=== PATIENT | female | born 1940 | race Hispanic/Latino ===

== ENCOUNTER 2017-05-21 22:24 | Emergency (ER) | payer MEDICAID, OTHER ==
[2017-05-21 22:47] LABS: BASOPHILS % (AUTO) 0.8 % (0.0-5.0); EOSINOPHILS % (AUTO) 2.8 % (0.0-8.0); HEMATOCRIT 39.3 % (36-48); LYMPHOCYTES % (AUTO) 16.6 % (21.0-51.0); MEAN CORPUSCULAR HEMOGLOBIN 30.1 pg (27.0-33.0); MEAN CORPUSCULAR VOLUME 88.5 fL (79-99); NEUTROPHILS % (AUTO) 70.8 % (40.0-77.0); PLATELET COUNT (AUTO) 162 K/uL (130-400); RED BLOOD CELL COUNT(AUTO) 4.44 MIL/uL (4.00-5.50); RED CELL DISTRIBUTION WIDTH 14.3 % (11.0-15.5); WHITE BLOOD COUNT (AUTO) 7.6 K/uL (4.8-10.8)
[2017-05-21 22:55] LABS: CREATININE 0.7 mg/dL (0.5-1.5); POTASSIUM 3.8 mmol/L (3.5-5.1)
[2017-05-21 22:58] LABS: INR 0.96 (0.85-1.15); PARTIAL THROMBOPLASTIN TIME 24.5 SEC (26.3-35.5); PROTHROMBIN TIME 10.1 SEC (9.6-11.6)
[2017-05-21 23:09] LABS: ALBUMIN 3.3 g/dL (3.5-5.0); BILIRUBIN,TOTAL 0.3 mg/dL (0.2-1.0); CREATINE KINASE MB 0.9 ng/mL (0.5-3.6); TOTAL PROTEIN, SERUM 6.9 g/dL (6.0-8.3)
== END 2017-05-22 01:01 | disposition home or self-care (01) ==
LOC: EDH 22:24
DX: I16.9 Hypertensive crisis, unspecified (principal); F03.90 Unspecified dementia, unspecified severity, without behavioral disturbance, psychotic disturbance, mood disturbance, and anxiety; J34.89 Other specified disorders of nose and nasal sinuses; R05 Cough; M79.89 Other specified soft tissue disorders; Z90.710 Acquired absence of both cervix and uterus
CPT/HCPCS: 36415; 70450; 71045; 80053; 82550; 82553; 83880; 84484; 85025; 85610; 85730; 93005; 99291

== ENCOUNTER 2018-06-21 09:22 | Emergency (ER) | payer MEDICAID, OTHER ==
[2018-06-21 10:00] LABS: APPEARANCE,URINE Clear (CLEAR); BILIRUBIN,URINE Negative (NEGATIVE); COLOR,URINE Yellow (YELLOW); GLUCOSE, URINE (UA) Negative (NEGATIVE); KETONES,URINE Negative (NEGATIVE); LEUKOCYTE ESTERASE ,URINE Moderate (NEGATIVE); NITRATE,URINE Negative (NEGATIVE); OCCULT BLOOD,URINE Negative (NEGATIVE); PH,URINE 7.5 (5.0-8.0); PROTEIN,URINE Negative (NEGATIVE); UROBILINOGEN,URINE 0.2 mg/dL (0.2-1.0)
[2018-06-21 10:11] LABS: BASOPHILS % (AUTO) 0.8 % (0.0-5.0); HEMATOCRIT 43.6 % (36-48); LYMPHOCYTES % (AUTO) 17.2 % (21.0-51.0); MEAN CORPUSCULAR HEMOGLOBIN 29.4 pg (27.0-33.0); MEAN CORPUSCULAR HGB CONC 32.8 g/dL (32.0-36.0); MEAN CORPUSCULAR VOLUME 89.6 fL (79-99); MONOCYTES % (AUTO) 8.2 % (3.0-13.0); NEUTROPHILS % (AUTO) 70.8 % (40.0-77.0); NUCLEATED RED BLOOD CELLS 0.1 % (0.0-0.19); PLATELET COUNT (AUTO) 137 K/uL (130-400); RED BLOOD CELL COUNT(AUTO) 4.87 MIL/uL (4.00-5.50); RED CELL DISTRIBUTION WIDTH 14.1 % (11.0-15.5); WHITE BLOOD COUNT (AUTO) 5.4 K/uL (4.8-10.8)
[2018-06-21 10:24] LABS: BACTERIA,URINE Moderate /HPF (None Seen); RBC,URINE 0-1 /HPF (0-1)
[2018-06-21 10:24] LABS: CREATININE 0.6 mg/dL (0.5-1.5); POTASSIUM 3.7 mmol/L (3.5-5.1)
[2018-06-21] MEDS ORDERED: CLONIDINE HCL 0.1 MG TABLET ONE (10:35)
== END 2018-06-21 14:07 | disposition home or self-care (01) ==
LOC: EDH 09:22
DX: I10 Essential (primary) hypertension (principal); F03.90 Unspecified dementia, unspecified severity, without behavioral disturbance, psychotic disturbance, mood disturbance, and anxiety; Z90.710 Acquired absence of both cervix and uterus; Z87.891 Personal history of nicotine dependence
CPT/HCPCS: 36415; 80048; 81001; 85025

== ENCOUNTER 2018-08-31 13:39 | Inpatient (IN) | payer OTHER ==
[~2018-08-31] VITALS: Ht 157.5 cm; Wt 67.2 kg
[2018-08-31] VITALS (7 sets, daily range): BP systolic 140–176; BP diastolic 60–113
[2018-08-31 14:02] LABS: BASOPHILS % (AUTO) 0.8 % (0.0-5.0); EOSINOPHILS % (AUTO) 2.4 % (0.0-8.0); LYMPHOCYTES % (AUTO) 18.2 % (21.0-51.0); MEAN CORPUSCULAR HEMOGLOBIN 29.2 pg (27.0-33.0); MEAN CORPUSCULAR HGB CONC 33.1 g/dL (32.0-36.0); MEAN CORPUSCULAR VOLUME 88.3 fL (79-99); MONOCYTES % (AUTO) 8.5 % (3.0-13.0); NEUTROPHILS % (AUTO) 70.1 % (40.0-77.0); PLATELET COUNT (AUTO) 143 K/uL (130-400); RED BLOOD CELL COUNT(AUTO) 4.64 MIL/uL (4.00-5.50); RED CELL DISTRIBUTION WIDTH 13.9 % (11.0-15.5); WHITE BLOOD COUNT (AUTO) 7.9 K/uL (4.8-10.8)
[2018-08-31 14:14] LABS: CREATININE 0.7 mg/dL (0.5-1.5); POTASSIUM 3.6 mmol/L (3.5-5.1)
[2018-08-31 14:18] LABS: ALBUMIN 3.3 g/dL (3.5-5.0); BILIRUBIN,TOTAL 0.3 mg/dL (0.2-1.0); TOTAL PROTEIN, SERUM 6.6 g/dL (6.0-8.3)
[2018-08-31 14:23] LABS: CREATINE KINASE, TOTAL 38 U/L (21-232); MYOGLOBIN 29 ng/mL (10-92); PARTIAL THROMBOPLASTIN TIME 27.1 SEC (26.3-35.5); PROTHROMBIN TIME 10.5 SEC (9.6-11.6); TROPONIN I < 0.04 ng/mL (0.00-0.06)
[2018-08-31] MEDS ORDERED: IOHEXOL-350 75 ML VIAL IV ONE (14:35)
[2018-08-31] MEDS ORDERED: ONDANSETRON HCL 4 MG/2 ML VIAL IV PRN (15:30)
[2018-08-31] MEDS ORDERED: ZOLPIDEM TARTRATE 5 MG TAB PO PRN (15:30)
[2018-08-31] MEDS ORDERED: ACETAMINOPHEN 325 MG TAB PO PRN ×2 (15:30)
[2018-08-31] MEDS ORDERED: ASPIRIN 81MG TAB.CHEW ONE (15:33)
[2018-08-31] MEDS ORDERED: HYDRALAZINE HCL 20 MG/ML VIAL ONE (16:23)
[2018-08-31] MEDS: SODIUM CHLORIDE 0.9% 1000ML 1,000 ML IV SCH (18:10)
--- NOTE | 2018-08-31 19:15 | NUR ---
[facility] ASSET PROTECTION MANAGER MADE AWARE OF MRI RESULTS. SEE ORDERS
--- NOTE | 2018-08-31 19:30 | NUR ---
ASSESSMENT PT RESTING IN BED QUIETLY, FAMILY AT BEDSIDE. PT CURRENTLY DENIES ANY PAIN. ASSESSMENT COMPLETED, SEE FLOW SHEET.
[2018-08-31] MEDS ORDERED: ENOXAPARIN SODIUM 30 MG/0.3 ML SQ SCH (21:00)
[2018-09-01] VITALS (7 sets, daily range): BP systolic 141–180; BP diastolic 80–108
[2018-09-01] MEDS: SODIUM CHLORIDE 0.9% 1000ML 1,000 ML IV SCH ×3 (00:11→15:25)
[2018-09-01 04:04] LABS: EOSINOPHILS % (AUTO) 2.7 % (0.0-8.0); LYMPHOCYTES % (AUTO) 15.6 % (21.0-51.0); MEAN CORPUSCULAR HEMOGLOBIN 30.5 pg (27.0-33.0); MEAN CORPUSCULAR HGB CONC 34.3 g/dL (32.0-36.0); MEAN CORPUSCULAR VOLUME 88.9 fL (79-99); MONOCYTES % (AUTO) 6.8 % (3.0-13.0); NEUTROPHILS % (AUTO) 73.9 % (40.0-77.0); PLATELET COUNT (AUTO) 139 K/uL (130-400); RED BLOOD CELL COUNT(AUTO) 4.61 MIL/uL (4.00-5.50); RED CELL DISTRIBUTION WIDTH 13.9 % (11.0-15.5); WHITE BLOOD COUNT (AUTO) 8.6 K/uL (4.8-10.8)
[2018-09-01 04:24] LABS: CREATININE 0.7 mg/dL (0.5-1.5); POTASSIUM 3.4 mmol/L (3.5-5.1)
[2018-09-01] MEDS ORDERED: LOSA50TA64 PO (08:02)
--- NOTE | 2018-09-01 08:11 | NUR ---
PT IS MORE CONVERSANT TODAY. SPEAKS MORE THAN ONE WORD AND IS ABLE TO EXPRESS HERSELF. SHE ANSWERS AND CURRENT MONTH INCORRECT. ORIENTED TO NAME ONLY. CALM. MOVES ALL EXTREMITIES- SOME MILD WEAKNESS TO LOWER EXTREMITIES BILATERALLY. FAMILY STATES SHE HAS NOT BEEN ABLE TO WALK DUE TO WEAKNESS AT HOME. RT KNEE HAS SOME MILD SWELLING BUT NO DEFORMITIES. WILL INFORM MD ON ROUNDS.
[2018-09-01] MEDS ORDERED: DONE5TAB33 PO (08:21)
--- NOTE | 2018-09-01 08:33 | NUR ---
PT BEING SEEN BY JAYNE LA. EXAMINING PT AND INTERVIEWING FAMILY. PT TOOK HER OWN [place] 50MG PO.
[2018-09-01] MEDS ORDERED: ASPIRIN 325 MG TABLET PO SCH ×2 (09:00)
[2018-09-01] MEDS: LOSARTAN 50 MG TABLET PO SCH (09:00)
[2018-09-01] MEDS: CLOPIDOGREL BISULFATE 75 MG TAB PO SCH (09:47)
[2018-09-01] MEDS: ASPIRIN 81MG TAB.CHEW PO SCH ×2 (09:47→15:24)
[2018-09-01] MEDS: ENOXAPARIN SODIUM 30 MG/0.3 ML SQ SCH (09:48)
--- NOTE | 2018-09-01 11:00 | NUR ---
INITIAL: Met with pt and family this morning to discuss dcp. Prior to admission pt was living w son Da Nair. Pt was independent w ambulation and ADLs. Per Dtr Dinora, pt owns a cane. Dinora also states that her brother goes to work during the day. Informed Dinora that pt would poss need care 18/09. She mentions that family will be making arrangements for someone to be w pt at all times. Low income packet provided. Per Dinora they were already looking into a program to assist w provider services. CM to continue to follow and wait of Md recommendations. Addendum: 09/01/18 at 1727 by JOSE E ESCOBAR CM Amended: Links added.
--- NOTE | 2018-09-01 12:39 | NUR ---
NO ACUTE CHANGES NOTED. STABLE. NO NEURO CHANGES NOTED
--- NOTE | 2018-09-01 18:28 | NUR ---
PT IS AGITATED AND CONFUSED . TRYING TO GET OUT OF BED AND DIFFICULT TO DIRECT. SHE IS SPEAKING SENTENCES-" I WANT TO GO OVER THERE" "THERE OVER THERE" FAMILY AT BEDSIDE. MOVES ALL EXTREMITIES. SPEECH IMPROVED. Marlene GARNETT BILLING CUSTOMER SERVICE REPRESENTATIVE CALLED NOTIFIED OF EPISODE. ORDERS RECEIVED FOR ATIVAN 0.5MG IV X 1
[2018-09-01] MEDS ORDERED: LORAZEPAM 2 MG/ML 1 ML VIAL IVP SCH (18:30)
[2018-09-01] MEDS ORDERED: LORAZEPAM 2 MG/ML 1 ML VIAL ONE (18:34)
--- NOTE | 2018-09-01 18:52 | NUR ---
PT NOW CALM AND RESTFUL. NO ACUTE DISTRESS NOTED.
--- NOTE | 2018-09-01 19:17 | NUR ---
TRANSFER TO ROOM 231. HAND OFF REPORT GIVEN TO DILCIA RN- FAMILY AWARE
[2018-09-01] MEDS: DONEPEZIL HCL 5 MG TAB PO SCH (21:51)
[2018-09-01] MEDS: ATORVASTATIN CALCIUM 20 MG TABLET PO SCH (21:51)
[2018-09-02] VITALS (8 sets, daily range): BP systolic 149–184; BP diastolic 78–108
[2018-09-02 03:39] LABS: EOSINOPHILS % (AUTO) 2.8 % (0.0-8.0); HEMATOCRIT 42.5 % (36-48); LYMPHOCYTES % (AUTO) 14.5 % (21.0-51.0); MEAN CORPUSCULAR HEMOGLOBIN 29.1 pg (27.0-33.0); MEAN CORPUSCULAR HGB CONC 32.8 g/dL (32.0-36.0); MEAN CORPUSCULAR VOLUME 88.8 fL (79-99); NEUTROPHILS % (AUTO) 72.7 % (40.0-77.0); PLATELET COUNT (AUTO) 157 K/uL (130-400); RED BLOOD CELL COUNT(AUTO) 4.78 MIL/uL (4.00-5.50); WHITE BLOOD COUNT (AUTO) 7.9 K/uL (4.8-10.8)
[2018-09-02 03:49] LABS: CREATININE 0.7 mg/dL (0.5-1.5); POTASSIUM 3.3 mmol/L (3.5-5.1)
[2018-09-02] MEDS: SODIUM CHLORIDE 0.9% 1000ML 1,000 ML IV SCH (05:12)
[2018-09-02] MEDS: ASPIRIN 81MG TAB.CHEW PO SCH (08:47)
[2018-09-02] MEDS: ENOXAPARIN SODIUM 30 MG/0.3 ML SQ SCH (08:47)
[2018-09-02] MEDS: LOSARTAN 50 MG TABLET PO SCH (08:47)
[2018-09-02] MEDS: CLOPIDOGREL BISULFATE 75 MG TAB PO SCH (08:47)
--- NOTE | 2018-09-02 09:30 | NUR ---
DYSPHAGIA EVAL COMPLETE. -S/S OF ASPIRATION. RECOMMEND REGULAR, THIN LIQUID DIET; PILLS WHOLE WITH LIQUIDS. PATIENT INFORMATION: Pt IS AN 78 Y.O. FEMALE REFERRED FOR A BEDSIDE DYSPHAGIA EVALUATION SECONDARY TO CVA VS TIA. DAUGHTER PRESENT AT BEDSIDE AT THE TIME OF THE EVALUATION. Pt COOPERATIVE PARTICIPATING IN P.O. Pt WITH DECREASED HAND EYE COORDINATION REQUIRING ASSISTANCE FOR P.O. Pt WITH DENTURES IN PLACE AT THE TIME OF THE EVALUATION. Pt CURRENTLY ADMITTED SECONDARY TO CVA VS TIA. Pt HAS A PAST MEDICAL HISTORY OF DEMENTIA, HYPERTENSIVE DISORDER. DAUGHTER STATES THAT Pt HAD SLURRED SPEECH AND DECREASED COORDINATION WHICH PROMPTED THEM TO BRING HER IN TO THE HOSPITAL. EVALUATION: SWALLOW FUNCTION AND EFFICIENCY WITHIN FUNCTIONAL LIMITS. ORAL MOTOR STRENGTH, COORDINATION, AND ROM WITHIN FUNCTIONAL LIMITS. LARYNGEAL ELEVATION/EXCURSION STRONG WITH TIMELY PHARYNGEAL RESPONSE. NO OVERT SIGNS OR SYMPTOMS OF ASPIRATION PRESENT AT BEDSIDE. VOCAL QUALITY CLEAR WITH NO THROAT CLEAR OR COUGH RESPONSE PRESENT. RECOMMENDATIONS: 1. REGULAR TEXTURE, THIN LIQUID DIET; PILLS WHOLE WITH LIQUIDS. 2. COMPENSATORY STRATEGIES (PROPHYLAXIS): *SEATED AT 90 DEGREE ANGLE *NO STRAW *SLOW RATE *REMAIN UPRIGHT 30 MINUTES AFTER MEAL TIMES G-CODES SWALLOWING: [id number] Addendum: 09/02/18 at 1240 by AMRITA PFEIFFER [facility] Amended: Links added.
--- NOTE | 2018-09-02 09:45 | NUR ---
COGNITIVE-LINGUISTIC EVALUATION. Pt PRESENTS WITH MODERATE COGNITIVE DEFICITS, MILD MOTOR SPEECH; AT BASELINE PER DAUGHTER. PATIENT INFORMATION: Pt IS AN 78 Y.O. FEMALE REFERRED FOR A COGNITIVE-LINGUISTIC EVALUATION SECONDARY TO CVA VS TIA. DAUGHTER PRESENT AT BEDSIDE AT THE TIME OF THE EVALUATION. Pt COOPERATIVE PARTICIPATING IN P.O. DAUGHTER REPORTS Pt IS BACK TO BASELINE AT THIS TIME. Pt CURRENTLY ADMITTED SECONDARY TO CVA VS TIA. Pt HAS A PAST MEDICAL HISTORY OF DEMENTIA, HYPERTENSIVE DISORDER. DAUGHTER STATES THAT Pt HAD SLURRED SPEECH AND DECREASED COORDINATION WHICH PROMPTED THEM TO BRING HER IN TO THE HOSPITAL. Pt'S DEFICITS HAVE IMPROVED. EVALUATION: Pt ABLE TO FOLLOW 1-STEP COMMANDS WITH MAX CUES. Pt AAOX1 INDEPENDENTLY. Pt WITH MILD DYSARTHRIA AND LOW VOCAL INTENSITY. Pt IS 60% INTELLIGIBLE TO UNFAMILIAR LISTENER. PT WITH DECREASED MEMORY SKILLS AND ATTENTION DURING THE EVALUATION. Pt PRESENTS WITH MILD MOTOR SPEECH DEFICITS AND MODERATE COGNITIVE DEFICITS. SKILLED SPEECH THERAPY IS NOT RECOMMENDED AT THIS TIME Pt IS CURRENTLY AT BASELINE. G-CODES MEMORY: [id number] Addendum: 09/02/18 at [address] Amended: Links added.
[2018-09-02] MEDS: DONEPEZIL HCL 5 MG TAB PO SCH (21:00)
[2018-09-02] MEDS: ATORVASTATIN CALCIUM 20 MG TABLET PO SCH (21:00)
[2018-09-02] MEDS: HYDRALAZINE HCL 20 MG/ML VIAL IV PRN (21:00)
[2018-09-03 03:00] VITALS: BP 153/78
[2018-09-03 03:48] LABS: BASOPHILS % (AUTO) 0.7 % (0.0-5.0); EOSINOPHILS % (AUTO) 4.3 % (0.0-8.0); HEMATOCRIT 42.1 % (36-48); LYMPHOCYTES % (AUTO) 22.2 % (21.0-51.0); MEAN CORPUSCULAR HEMOGLOBIN 30.3 pg (27.0-33.0); MEAN CORPUSCULAR HGB CONC 34.2 g/dL (32.0-36.0); MEAN CORPUSCULAR VOLUME 88.6 fL (79-99); MONOCYTES % (AUTO) 9.1 % (3.0-13.0); NEUTROPHILS % (AUTO) 63.7 % (40.0-77.0); PLATELET COUNT (AUTO) 142 K/uL (130-400); RED BLOOD CELL COUNT(AUTO) 4.75 MIL/uL (4.00-5.50); RED CELL DISTRIBUTION WIDTH 14.1 % (11.0-15.5); WHITE BLOOD COUNT (AUTO) 6.5 K/uL (4.8-10.8)
[2018-09-03 04:12] LABS: ALBUMIN 3.1 g/dL (3.5-5.0); CREATININE 0.7 mg/dL (0.5-1.5); MAGNESIUM 2.4 mg/dL (1.80-2.40)
--- NOTE | 2018-09-03 06:10 | NUR ---
0445 Informed per PCP Carlitos pt fell in room while daughter sleeping. Patient in bed when nurse walked in. Examined. Neuro v/s unchanged. Daughter Dinora Long at bedside states patient was not hurt. 0450 Call to Hospitalist filtration plant operator (Janet Marcum), informed of fall, pt status. X-rays ordered. Spoke to Radiation Oncologist YON Lee. Informed of fall. 512 Patient went down to radiology for x rays as ordered per .
[2018-09-03 07:31] VITALS: BP 164/76
[2018-09-03] MEDS ORDERED: METOPROLOL TARTRATE 25 MG TAB PO SCH (09:00)
[2018-09-03] MEDS: LOSARTAN 50 MG TABLET PO SCH (09:02)
[2018-09-03] MEDS: ASPIRIN 81MG TAB.CHEW PO SCH (09:02)
[2018-09-03] MEDS: CLOPIDOGREL BISULFATE 75 MG TAB PO SCH (09:02)
[2018-09-03] MEDS: ENOXAPARIN SODIUM 30 MG/0.3 ML SQ SCH (09:04)
[2018-09-03 09:57] VITALS: BP 149/82
--- NOTE | 2018-09-03 11:21 | NUR ---
FOLLOW-UP. Pt TOLERATING CURRENT DIET OF REGULAR, THIN LIQUIDS WITH NO OVERT S/S OF ASPIRATION. RECOMMEND CONTINUED P.O. FOR ALL MEALS AND SNACKS. Addendum: 09/03/18 at 1124 by AMRITA PFEIFFER, [facility] Amended: Links added.
[2018-09-03 11:24] VITALS: BP 145/78
[2018-09-03 15:42] VITALS: BP 162/84
[2018-09-03] MEDS: HYDRALAZINE HCL 20 MG/ML VIAL IV PRN (16:18)
[2018-09-03] MEDS ORDERED: POTASSIUM CHLORIDE 20 MEQ ERTAB PO ONE (19:26)
[2018-09-03] MEDS ORDERED: CLOP75TA14 PO (19:37)
[2018-09-03] MEDS ORDERED: METO25 PO (19:37)
[2018-09-03] MEDS ORDERED: ATOR20TA65 PO (19:37)
[2018-09-03] MEDS ORDERED: POTASSIUM CHLORIDE 20 MEQ ERTAB PO SCH ×2 (20:30)
--- NOTE | 2018-09-03 20:53 | NUR ---
DC DC TEACHING AND INSTRUCTION GIVEN TO PT AND FAMILY; VOICED UNDERSTANDING. IV REMOVED WITH TIP INTACT. TELEPACK REMOVED. VS WNL: BP-148/83,HR-104,,RR-20,O2 SATS-98%,T-98.2. PT DENIES PAIN OR DISTRESS. PT ESCORTED TO PRIVATE CAR VIA WHEELCHAIR IN STABLE CONDITION.
== END 2018-09-03 20:40 | disposition home or self-care (01) | DRG 66 ==
LOC: EDH 13:39 → EDHIP 13:40 → OBSVTOIN 13:40 → 2BH 16:29 → 2AH 09-01 19:04
PROVIDERS: ADMIT Hospitalist; ATTEND Hospitalist
DX: I63.9 Cerebral infarction, unspecified (principal); I10 Essential (primary) hypertension; F03.90 Unspecified dementia, unspecified severity, without behavioral disturbance, psychotic disturbance, mood disturbance, and anxiety; R29.705 NIHSS score 5; M25.561 Pain in right knee
CPT/HCPCS: 36415; 70450; 70496; 70498; 70551; 72070; 72100; 72220; 73560; 80048; 80053; 80061; 82040; 82550; 82948; 83036; 83735; 83874; 83880; 84443; 84484; 85025; 85610; 85730; 92522; 92610; 93005; 93306; 93880; 97039; A6250; G0378; J0360; J1650; J2060; J7030; Q9967

== ENCOUNTER 2019-01-03 04:00 | Emergency (ER) | payer MEDICAID, OTHER ==
[~2019-01-03 04:00] MED LIST: ATOR20TA65 PO; CLOP75TA14 PO; DONE5TAB33 PO; LOSA50TA64 PO; METO25 PO
[2019-01-03] MEDS ORDERED: ONDANSETRON HCL 4 MG/2 ML VIAL ONE (04:25)
[2019-01-03 04:29] LABS: LYMPHOCYTES % (AUTO) 21.2 % (21.0-51.0); MEAN CORPUSCULAR HEMOGLOBIN 31.5 pg (27.0-33.0); MEAN CORPUSCULAR HGB CONC 34.5 g/dL (32.0-36.0); MEAN CORPUSCULAR VOLUME 91.3 fL (79-99); MONOCYTES % (AUTO) 10.6 % (3.0-13.0); NEUTROPHILS % (AUTO) 64.2 % (40.0-77.0); NUCLEATED RED BLOOD CELLS 0.1 % (0.0-0.19); PLATELET COUNT (AUTO) 124 K/uL (130-400); RED BLOOD CELL COUNT(AUTO) 4.16 MIL/uL (4.00-5.50); RED CELL DISTRIBUTION WIDTH 14.5 % (11.0-15.5); WHITE BLOOD COUNT (AUTO) 5.8 K/uL (4.8-10.8)
[2019-01-03 04:34] LABS: CREATININE 1.2 mg/dL (0.5-1.5); POTASSIUM 3.1 mmol/L (3.5-5.1)
[2019-01-03 04:39] LABS: ALBUMIN 3.4 g/dL (3.5-5.0); BILIRUBIN,DIRECT 0.1 mg/dL (0.0-0.3); BILIRUBIN,TOTAL 0.7 mg/dL (0.2-1.0); TOTAL PROTEIN, SERUM 6.5 g/dL (6.0-8.3)
[2019-01-03 04:50] LABS: APPEARANCE,URINE Cloudy (CLEAR); BILIRUBIN,URINE Small (NEGATIVE); COLOR,URINE Dark Yellow (YELLOW); GLUCOSE, URINE (UA) Negative (NEGATIVE); KETONES,URINE Trace mg/dL (NEGATIVE); LEUKOCYTE ESTERASE ,URINE Trace (NEGATIVE); NITRATE,URINE Negative (NEGATIVE); OCCULT BLOOD,URINE Negative (NEGATIVE); PROTEIN,URINE POS 1+ mg/dL (NEGATIVE)
[2019-01-03 05:00] LABS: BACTERIA,URINE Rare /HPF (None Seen); MUCUS,URINE Few LPF (None Seen); RBC,URINE 0-1 /HPF (0-1); SQUAMOUS EPITHELIAL CELL,UR 0-2 /HPF (0-2)
[2019-01-03] MEDS ORDERED: POTASSIUM BICARB/CIT AC 25 MEQ TABLET.EFF ONE (06:47)
== END 2019-01-03 08:14 | disposition home or self-care (01) ==
LOC: EDH 04:00
DX: R53.1 Weakness (principal); F03.90 Unspecified dementia, unspecified severity, without behavioral disturbance, psychotic disturbance, mood disturbance, and anxiety; E78.5 Hyperlipidemia, unspecified; I10 Essential (primary) hypertension; E78.00 Pure hypercholesterolemia, unspecified; Z86.73 Personal history of transient ischemic attack (TIA), and cerebral infarction without residual deficits; Z90.710 Acquired absence of both cervix and uterus; Z87.891 Personal history of nicotine dependence
CPT/HCPCS: 36415; 70450; 71045; 80048; 80076; 81001; 84484; 85025; 93005; 96374; 99285; J2405